=== PATIENT | male | born 2000 | race Caucasian/White ===

== ENCOUNTER 2023-05-18 16:17 | Emergency (ER) | payer OTHER, SELFPAY ==
[2023-05-18 16:28] VITALS: BP 127/83; PULSE 77; RESP 16; TEMP 36.6; O2SAT 96; BMI 37.5
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
[2023-05-18 17:31] LABS: Basophils % 0.4 %; Eosinophils # 0.1 10^3/uL (0.0-0.8); Eosinophils % 0.7 %; Hematocrit 48.7 % (42.0-52.0); Lymphocytes # 2.1 10^3/uL (1.5-6.5); Lymphocytes % 23.8 %; Mean Corpuscular HGB Conc 32.9 g/dL (30.0-36.0); Mean Corpuscular Hemoglobin 29.3 pg (28.0-34.0); Mean Corpuscular Volume 89.2 fl (80-94); Mean Platelet Volume 11.2 fL (7.4-10.4); Monocytes # 0.9 10^3/uL (0.2-0.9); Monocytes % 10.5 %; Neutrophils # 5.72 10^3/uL (1.8-8.0); Neutrophils % 64.4 %; Nucleated Red Blood Cells % 0 %; Platelet Count 200 10^3/cmm (130-400); Red Blood Count 5.46 10^6/uL (4.1-5.3); Red Cell Distribution Width 12.4 % (12.1-15.1); White Blood Count 8.9 10^3/uL (4.5-13.0)
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
[2023-05-18 17:54] LABS: Blood Urea Nitrogen 13 mg/dL (6-20); Calcium 9.6 mg/dL (8.5-10.5); Carbon Dioxide 26 mmol/L (22-29); Chloride 101 mmol/L (98-107); Glomerular Filtration Rate 107.6 mL/min (90-130); Glucose 87 mg/dL (65-115); Osmolality Calculated 281 mOsm/kg (285-295); Sodium 136 mmol/L (136-145)
[2023-05-18 17:57] LABS: Anion Gap 13.2 (5-19); Potassium 4.2 mmol/L (3.5-5.1)
[2023-05-18] MEDS: ondansetron 4 MG Tablet PO (19:20)
[2023-05-18 19:51] LABS: Add Urine Microscopic? YES; Bilirubin Urine Neg (Negative); Blood Urine Neg (Negative); Glucose Urine UA Norm (Normal); Ketones Urine Negative (Negative); Leukocyte Esterase Urine Negative (Negative); Nitrate Urine Negative (Negative); Protein Urine Trace (Negative); Specific Gravity, Urine 1.025 (1.005-1.030); Urine Appearance Clear (CLEAR); Urine Color Yellow (Yellow); Urobilinogen Urine Norm (Negative); pH Urine 5 (5-7)
[2023-05-18 19:56] LABS: Bacteria Urine TRACE /hpf; Mucus Urine 1+ /hpf; RBC Urine 0-4 /hpf (0-2); WBC Urine 0-4 /hpf (0-5)
[2023-05-18 20:39] VITALS: PULSE 84; RESP 16; O2SAT 97
--- NOTE | 2023-05-21 09:30 | DCPLANNER ---
business center manager was triggered to call patient due to no primary care physician - patient does not live in the area.
== END 2023-05-18 20:40 | disposition home or self-care (01) ==
PROVIDERS: Physician Assistant; Emergency Provider Physician Assistant
DX: S06.0XAA Concussion with loss of consciousness status unknown, initial encounter (principal); S16.1XXA Strain of muscle, fascia and tendon at neck level, initial encounter; M25.561 Pain in right knee; S50.812A Abrasion of left forearm, initial encounter; S50.811A Abrasion of right forearm, initial encounter; S60.512A Abrasion of left hand, initial encounter; S60.511A Abrasion of right hand, initial encounter; V59.9XXA Occupant (driver) (passenger) of pick-up truck or van injured in unspecified traffic accident, initial encounter
CPT/HCPCS: 36415; 70450; 71250; 72125; 73562; 74176; 80048; 81001; 85025; 99285; Q0162

== ENCOUNTER 2023-08-31 11:23 | Emergency (ER) | payer OTHER, SELFPAY ==
[2023-08-31 11:43] VITALS: BP 149/94; PULSE 83; RESP 17; TEMP 36.7; O2SAT 97
[2023-08-31 12:10] LABS: Basophils % 0.7 %; Eosinophils # 0.1 10^3/uL (0.0-0.8); Eosinophils % 1.3 %; Hematocrit 48.4 % (37-53); Lymphocytes # 1.6 10^3/uL (0.8-4.8); Mean Corpuscular HGB Conc 32.9 g/dL (30-55); Mean Corpuscular Hemoglobin 30.1 pg (27-33); Mean Corpuscular Volume 91.5 fl (82-101); Mean Platelet Volume 10.9 fL (7.4-10.4); Monocytes # 0.5 10^3/uL (0.2-0.9); Monocytes % 9.4 %; Neutrophils # 3.23 10^3/uL (1.8-7.7); Neutrophils % 59.2 %; Nucleated Red Blood Cells % 0 %; Platelet Count 203 10^3/cmm (157-399); Red Blood Count 5.29 10^6/uL (3.85-5.65); Red Cell Distribution Width 12.4 % (12.1-15.1); White Blood Count 5.45 10^3/uL (3.29-11.43)
[2023-08-31 12:20] LABS: INR 0.96 (0.8-1.2)
[2023-08-31 12:25] LABS: Alanine Aminotransferase 65 U/L (0-41); Albumin Level 4.3 g/dL (3.5-5.2); Alkaline Phosphatase 129 U/L (40-130); Anion Gap 12.4 (5-19); Aspartate Amino Transferase 28 U/L (0-40); Blood Urea Nitrogen 10 mg/dL (6-20); Calcium 9.4 mg/dL (8.5-10.5); Carbon Dioxide 29 mmol/L (22-29); Chloride 101 mmol/L (98-107); Creatinine Clr Calc Pharmacy 181.2701; Globulin 2.7 g/dL (1.3-4.6); Glucose 87 mg/dL (65-115); Osmolality Calculated 286 mOsm/kg (285-295); Potassium 3.4 mmol/L (3.5-5.1); Sodium 139 mmol/L (136-145); Total Bilirubin 0.3 mg/dL (0.15-1.2)
[2023-08-31 14:26] VITALS: BP 140/86; PULSE 85; RESP 16; O2SAT 98
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
[2023-08-31 15:05] LABS: Add Urine Culture? No; Add Urine Microscopic? YES; Amorphous Sediment Urine 2+ /hpf; Bacteria Urine TRACE /hpf; Bilirubin Urine Neg (Negative); Blood Urine Neg (Negative); Glucose Urine UA Norm (Normal); Ketones Urine Negative (Negative); Leukocyte Esterase Urine Negative (Negative); Nitrate Urine Negative (Negative); Protein Urine Neg (Negative); Urine Appearance SL Hazy (CLEAR); Urine Color Yellow (Yellow); Urobilinogen Urine Norm (Negative); WBC Urine 0-4 /hpf (0-5); pH Urine 6.5 (5-7)
[2023-08-31 15:39] VITALS: BP 134/91; PULSE 88; RESP 18; O2SAT 97
[2023-08-31 15:46] VITALS: BP 134/91; PULSE 88; RESP 16; O2SAT 97
--- NOTE | 2023-09-01 18:19 | DCPLANNER ---
Referral was sent to general surgery. General surgery is to contact patient.
--- NOTE | 2023-09-09 18:25 | DCPLANNER ---
Message sent to Gen Surg for follow up on rectal bleeding.
== END 2023-08-31 15:47 | disposition home or self-care (01) ==
PROVIDERS: Emergency Medicine; Emergency Provider Family Medicine
DX: K92.1 Melena (principal); Z87.891 Personal history of nicotine dependence
CPT/HCPCS: 36415; 80053; 81001; 85025; 85610; 99284